=== PATIENT | female | born 1950 | race Caucasian/White ===

== ENCOUNTER 2019-11-16 16:24 | Observation (INO) | payer MEDICARE ==
--- NOTE | 2019-11-16 16:56 | RAD ---
Chest 2 views HISTORY: Chest pain. FINDINGS: Cardiac silhouette and pulmonary vasculature are unremarkable. Mediastinum is midline allow ing for S shaped curvature of the upper thoracic spine. Lungs are hyperinflated. Subtle parenchymal density projecting over the right lateral apex favored to represent parenchymal scarring. No confluen t airspace consolidation, pneumothorax, or pleural fluid. IMPRESSION: Emphysema. No active cardiopulmonary abnormalities are otherwise demonstrated.
[2019-11-16] MEDS ORDERED: Lidocaine Viscous Sol 2% 15 ml UD Cup ONE (17:20)
[2019-11-16] MEDS ORDERED: Nitroglycerin 0.4 MG TAB 1 EACH ONE (17:20)
[2019-11-16] MEDS ORDERED: Aspirin Chewable 81 MG TAB ONE (17:20)
[2019-11-16] MEDS ORDERED: Milk Of Magnesia 30 ML UDCUP ONE (17:20)
[2019-11-16 17:32] LABS: #Basophils 0.1 thou/uL (0.0-0.2); #Eosinphils 0.2 thou/uL (0.0-0.7); #Lymphocytes 2.4 thou/uL (1.20-3.40); #Monocytes 0.5 thou/uL (0.11-0.59); #Neutrophils 3.6 thou/uL (1.40-6.50); %Basophils 1.3 % (0.0-1.0); %Eosinophils 3.1 % (0.0-10.0); %Lymphocytes 35.6 % (21.0-51.0); %Monocytes 7.1 % (0.0-10.0); %Neutrophils 52.8 % (42.0-75.0); Hemoglobin 13.7 g/dL (12.0-16.0); Mean Corpuscular HGB CONC 34.1 g/dL (32.0-36.0); Mean Corpuscular Hemoglobin 30.3 pg (27.0-31.0); Mean Corpuscular Volume 88.7 fL (78.0-98.0); Mean Platelet Volume 7.1 fL (7.4-10.4); Platelet Count 228 thou/uL (130-400); RBC Distribution Width 11.4 % (11.5-14.5); Red Blood Cell (RBC) Count 4.53 mill/uL (4.20-5.40); White Blood Cell (WBC) Count 6.8 thou/uL (4.8-10.8)
[2019-11-16 17:57] LABS: ALT (SGPT) 11 U/L (8-55); AST (SGOT) 14 U/L (5-34); Albumin 4.3 g/dL (3.4-4.8); Alkaline Phosphatase 79 U/L (40-110); Anion Gap 12 mmol/L (10-20); BUN (Urea Nitrogen) 14 mg/dL (9.8-20.1); Bilirubin, Total 0.4 mg/dL (0.2-1.2); CK (CPK) 60 U/L (29-168); Calc. Creatinine Clearance 0 mL/min (70-130); Calcium 9.5 mg/dL (7.8-10.44); Carbon Dioxide 27 mmol/L (23-31); Chloride 104 mmol/L (98-107); Estimated GFR-MDRD 83; Globulin 2.9 g/dL (2.4-3.5); Glucose 97 mg/dL (80-115); Lipase 19 U/L (8-78); Protein, Total 7.2 g/dL (6.0-8.3); Sodium 139 mmol/L (136-145)
--- NOTE | 2019-11-16 18:52 | ULT ---
Sonogram right upper quadrant HISTORY: Right upper quadrant pain. FINDINGS: Gallbladder has a normal appearance without evidence of stones. Common duct is 0.3 cm. Live r unremarkable without focal mass or intrahepatic biliary dilatation. No free fluid. IMPRESSION: Normal right upper quadrant sonogram.
[2019-11-16] MEDS ORDERED: Morphine 4 MG/ML VIAL ONE (19:39)
[2019-11-16 20:38] LABS: Troponin I Less than 0.010 ng/mL (< 0.028)
[2019-11-16] MEDS ORDERED: Morphine 2 MG/ML SYRINGE SLOW IVP PRN (23:08)
[2019-11-16] MEDS ORDERED: Nitroglycerin 2% Ointment 1 INCH/1 GM Packet TOP SCH (23:15)
[2019-11-16] MEDS ORDERED: Morphine 2 MG/ML SYRINGE ONE (23:57)
[2019-11-16] MEDS ORDERED: Nitroglycerin 2% Ointment 1 INCH/1 GM Packet ONE (23:57)
[2019-11-17 00:01] LABS: Troponin I Less than 0.010 ng/mL (< 0.028)
[2019-11-17] MEDS ORDERED: Acetaminophen 500 MG TAB ONE (08:34)
[2019-11-17] MEDS ORDERED: Regadenoson 0.4 MG/5 ML SYRINGE ONE (08:58)
[2019-11-17] MEDS ORDERED: Acetaminophen 325 MG TAB PO PRN (09:13)
[2019-11-17] MEDS ORDERED: Pantoprazole 40 MG VIAL IVP SCH (09:15)
[2019-11-17] MEDS ORDERED: Pantoprazole 40 MG VIAL ONE (15:20)
--- NOTE | 2019-11-17 15:25 | NM ---
EXAM: Nuclear medicine cardiac perfusion examination with ejection fraction HISTORY: Chest pain TECHNIQUE: Rest images: 9 mCi technetium 99m sestamibi Stress images: 27.5 mCi of technetium 9M sestamibi; Lexiscan COMPARISON: None FINDINGS: Tomographic images: No fixed or reversible perfusion defects. Gated images: Normal wall motion and ejection fraction of greater than 70%. EDV: 55 mL LHR: 0.1 TID: 1.0 IMPRESSION: No evidence of ischemia
--- NOTE | 2019-11-17 16:11 | HP ---
CHIEF COMPLAINT: Chest pain. HISTORY OF PRESENT ILLNESS: This patient is a 69-year-old relatively healthy female. The patient reports that she has a history of some recurrent chest pain, which typically last a few hours, has more gradual onset and spontaneously resolves. She has seen her PCP Dr. Bakari Dillard for this and was referred to GI. GI felt this was not consistent with gallbladder disease and recommended she get cardiac screening. She was referred to a shoe designer but has not seen them yet. The patient had the onset of pain on 11/15/2019, at approximately 2:20 in the afternoon. She states the pain was typical of her previous pain, although it lasted longer and has persisted. The pain is primarily central left chest area and radiates in all directions. She has no associated shortness of breath, nausea, or lightheadedness. She does have some mild diaphoresis at times. REVIEW OF SYSTEMS: The patient reports minimal weight loss, but she is always very thin. She reports she does have some very mild dyspnea when climbing stairs and such, but nothing she consider significantly abnormal. All other systems reviewed and were negative. PAST MEDICAL HISTORY: Notable for GERD, asthma. The patient reports that her GERD is not symptomatic and has only been diagnosed based on her prior chest pain symptoms. SURGICAL HISTORY: Tonsillectomy, left ovarian cyst intervention. FAMILY HISTORY: Mother had heart disease with stents in her late 70s. Her father has a pacemaker. SOCIAL HISTORY: Nonsmoker, nondrinker, nondrug user. She is . She has a directive to physicians and her has some dementia and therefore has a difficult time trying to speak on her behalf. She says her son or [id number] would be her surrogate decision maker should that become necessary. ALLERGIES: NONE. CURRENT MEDICATIONS: Pantoprazole 40 mg p.o. daily. PHYSICAL EXAMINATION: VITAL SIGNS: BP 107/57, pulse 60, respirations 19, O2 saturation 99% on room air. GENERAL APPEARANCE: Age-appropriate female, in no distress. She is awake, alert, pleasant, cooperative. She is generally thin, but she says this is basically her baseline her whole life. HEENT: PERRL. No OP lesions. NECK: Supple and symmetric. No lymphadenopathy, JVD, or bruits. HEART: Regular rate and rhythm. No murmurs, gallops, or rubs. LUNGS: Clear to auscultation bilaterally. Good chest wall expansion and air exchange. ABDOMEN: Soft, nontender, and nondistended. Positive bowel sounds. No masses. No organomegaly. The patient does have very minimal epigastric tenderness to palpation. EXTREMITIES: No cyanosis, clubbing, or edema. PSYCH: Normal affect and behavior. NEURO: Cognitively intact. Cranial nerves intact. All extremities move spontaneously. No focal deficits. Normal sensation. MUSCULOSKELETAL: Reveals no tenderness to palpation over the chest wall. LABORATORY DATA: White count 6.8, hemoglobin 13.7, platelets 228. D-dimer is 0.27. Chemistries are completely normal. Troponin negative x3. Chest x-ray is negative except for evidence of some emphysema with a slight S shaped curvature of the upper thoracic spine. There is subtle parenchymal density projecting over the right lateral apex, favoring some parenchymal scarring. EKG negative for ischemia. Sinus rhythm does have an RSR prime pattern. IMPRESSION AND PLAN: Chest pain, etiology is currently not known. She does have the RSR prime with some evidence of some emphysema on her chest x-ray. Therefore, today we will get a stress test and echocardiogram. We will continue with the PPI. I am concerned she may have some esophageal spasms as well and may need a CT of the chest at some point given the x-ray findings, although they appear to be generally minimal and she is otherwise asymptomatic. Job ID: [id number]
[2019-11-17] MEDS ORDERED: Acetaminophen 325 MG TAB ONE (18:48)
[2019-11-17] MEDS: Pantoprazole 40 MG VIAL IVP SCH (21:37)
[2019-11-17 22:22] VITALS: BMI 17.0
[2019-11-18] MEDS: Pantoprazole 40 MG VIAL IVP SCH (08:59)
[2019-11-18 11:38] VITALS: BP 98/52; TEMP 98.4
[2019-11-18] MEDS ORDERED: traMADol HCl 50 MG TAB PO PRN (15:22)
== END 2019-11-18 16:03 | disposition home or self-care (01) ==
LOC: ERS 16:24 → ERHOLD 19:35 → 2SW 11-17 19:43
PROVIDERS: ADMIT Internal Medicine; ATTEND Internal Medicine
DX: R07.9 Chest pain, unspecified (principal); K21.9 Gastro-esophageal reflux disease without esophagitis; Z79.899 Other long term (current) drug therapy
CPT/HCPCS: 71046; 76705; 78452; 80053; 82550; 83690; 84484 ×2; 85025; 85379; 93005; 93017; 93306; 96374; 96375; 96376; 99285; A9500; G0378 ×2; 36415; C9113; J0280; J2270; J2785